=== PATIENT | male | born 1975 | race Hispanic/Latino ===

== ENCOUNTER 2017-09-06 15:57 | Emergency (ER) | payer OTHER ==
[~2017-09-06] VITALS: Ht 170.2 cm; Wt 93.9 kg
[~2017-09-06 15:57] MED LIST: CYCLOBENZAPRINE5 M2 PO; DIAZEPAM5 M1 PO; GABAPENTIN300 M2 PO; IBUPROFEN800 MG PO; KEFLEX500 MG PO; LISINOPRIL-HCT1 EAC1 PO; LISINOPRIL-HYDR1 TA1 PO; LYRICA50 MG PO; MULTI-DAY VITA1 EACH PO; NAPROSYN 500 M500 MG PO; NEXIUM 40MG40 MG PO; NUCYNTA50 M1 PO; OXYCODONE HCL15 MG PO; OXYCODONE HYDRO15 MG PO; PRAVACHOL20 M2 PO; PROAIR HFA8.5 GM INH; VICODIN 5-3001 EACH PO
--- NOTE | 2017-09-06 18:05 | ED UPPER/LOWER EXTREMITY COMPL ---
History of Present Illness General Chief Complaint: Laceration Procedure Stated Complaint: "LT HAND CUT BY LIGHT BULB GLASS" Source: patient Exam Limitations: no limitations Vital Signs & Intake/Output Vital Signs & Intake/Output Vital Signs Date Time Temp Pulse Resp B/P B/P Pulse O2 O2 Flow FiO2 Mean Ox Delivery Rate 09/06 1858 97.0 66 14 128/72 100 Nasal 2.0L Cannula 09/06 1652 98.7 93 20 116/73 95 Room Air Allergies Coded Allergies: No Known Allergies (09/06/17) Reconcile Medications Esomeprazole (Nexium) 40 MG CAPSULE.DR 1 CAP PO DAILY GI (Reported) Gabapentin 300 MG CAPSULE 1 CAP PO TID NERVE PAIN (Reported) Lisinopril/Hydrochlorothiazide (Lisinopril-Hctz 20-25 MG Tab) 1 EACH TABLET 1 TAB PO DAILY BP (Reported) Oxycodone HCl 10 MG TABLET 1 TAB PO Q8-12H PRN PAIN (Reported) Pravastatin Sodium (Pravachol) 20 MG TABLET 1 TAB PO DAILY CHOLESTEROL ( Reported) Triage Note: TRIAGE: PT TO ER WITH DAUGHTERS C/C LAC TO L HAND. STATES HE INJURED APPROX 1 HR AGO. HE WAS STANDING ON A LADDER WHEN HE FELL BACKWARDS AND HE HIT HIS HEAD INTO GLASS COVER TO LIGHT ON CEILING AND THEN HAND HIT INTO IT WELL. DENIES LOC OR HEAD PAIN. HAS APPROX 1 INCH LAC TO BACK SIDE OF HAND. STATES PINKY AND RING FINGER FEELS NUMB BUT IS ABLE TO MOVE BOTH. NEW DRESSING APPLIED AT TRIAGE, BLEEDING CONTROLLED. Triage Nurses Notes Reviewed? yes Onset: Abrupt Duration: constant Timing: single episode today Severity: moderate Severity Numbers: 5 HPI: Patient is a 41-year-old male who presents emergency and that while trying to change a light fixture the light fixture fell and struck the dorsal aspect of his hands resulting in a laceration with bleeding was controlled prior to arrival. Patient states tetanus is unknown patient is right arm dominant he complains of 3/10 and localized pain. (Slava Pacheco) Past History Travel History Traveled to [place] past 21 day No Medical History Any Pertinent Medical History? 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 No (Slava Pacheco) Review of Systems Review of Systems Constitutional: Reports: no symptoms. EENTM: Reports: no symptoms. Respiratory: Reports: no symptoms. Cardiovascular: Reports: no symptoms. Gastrointestinal/Abdominal: Reports: no symptoms. Genitourinary: Reports: no symptoms. Musculoskeletal: Reports: see HPI. Skin: Reports: see HPI. Neurological/Psychological: Reports: no symptoms. Hematologic/Endocrine: Reports: see HPI. Immunological: Reports: no symptoms. All Other Systems: Reviewed and Negative (Slava Pacheco) Physical Exam Physical Exam General Appearance: no apparent distress, alert, comfortable Head: atraumatic Eyes: Bilateral: normal appearance. Ears, Nose, Throat: hearing grossly normal Cardiovascular/Respiratory: no respiratory distress Peripheral Pulses: 2+ radial (L) Neurologic/Tendon: normal sensation, normal motor functions, normal tendon functions, responds to pain, no evidence tendon injury, no pulse deficit Skin: normal color Diagram Hands Back 1) Noted 1.5 cm subcutaneous linear laceration with full active range of motion and resisted range of motion with digit flexion and extension no exposed bone no exposed tendon no bleeding (Slava Pacheco) Progress Differential Diagnosis: arterial insufficiency, compartment syndrome, contusion, dislocation, DVT, fracture, gout, septic arthritis, sprain, tendon injury Plan of Care: Orders Procedure Date/time Status EKG 09/07 1999 Active Telemetry/Vice Principal 09/06 1942 Active ETHANOL 09/06 1942 Complete TROPONIN LEVEL 09/06 1922 Complete MAGNESIUM 09/06 1922 Complete COMPREHENSIVE METABOLIC PANEL 09/06 1922 Complete CBC WITHOUT DIFFERENTIAL 09/06 1922 Complete EKG 09/06 1853 Active Laboratory Tests 09/06/171954: Anion Gap 13, Estimated GFR > 60, BUN/Creatinine Ratio 15.0, Glucose 91, Calcium 9.4, Magnesium 2.0, Total Bilirubin 0.8, AST 35, ALT 69, Alkaline Phosphatase 74 , Troponin I < 0.01, Total Protein 7.2, Albumin 4.4, Globulin 2.8, Albumin/ Globulin Ratio 1.6, CBC w Diff NO MAN DIFF REQ, RBC 5.36, MCV 85.4, MCH 29.5, MCHC 34.5, RDW 13.6, MPV 7.3 L, Gran % 63.2, Lymphocytes % 26.6, Monocytes % 8.7, Eosinophils % 1.1, Basophils % 0.4, Absolute Granulocytes 3.8, Absolute Lymphocytes 1.6, Absolute Monocytes 0.5, Absolute Eosinophils 0.1, Absolute Basophils 0, Serum Alcohol < 10.0 No concerns of fracture or tendon deficit on exam Please note that after applying the sutures patient felt lightheaded and dizzy and had a vasovagal response and syncopal Patient was placed with laboratory monitor nasal cannula oxygen EKG was ordered After approximately 1 minute patient Patient became completely oriented after approximately 2-3 minutes. Patient did drink one tana prior to arrival currently is taking narcotics for pain. Patient has EKG abnormalities which I discussed the patient and EKG with Dr. Remy who advised to recheck see second EKG After patient totally recover from his vasovagal syncope the laceration repair was continued and which using sterile technique of Betadine I applied approximated 3 mL of 1% lidocaine then copious amounts of sterile water irrigation then was placed in which and total number for 5-0 sutures were applied margins were revised patient tolerated well Bacitracin and bandage was applied Blood work was obtained unremarkable findings discussed patient with Dr. Remy after a second EKG was unremarkable normal sinus rhythm he advised patient to follow-up in office. Discussed disposition plan with patient who agrees Due to patient's history of present illness and syncopal episode his EKG abnormalities were likely due to the syncopal episode Initial ED EKG: NOTED 64 BPM SINUS RHYTHM WITH RIGHT BUNDLE BRANCH BLOCK AND lvh AND t-WAVE ELEVATION Repeat EKG: changed (NORMAL SINUS RHYTHM) (Slava Pacheco) Departure Departure Disposition: HOME OR SELF CARE Condition: Stable Clinical Impression Primary Impression: Laceration of hand, left Secondary Impressions: Vasovagal episode Referrals: Gaviota Wilkins APRN (PCP/Family) Sandrita ROBLES,Maurice Read Additional Instructions: As discussed apply bacitracin to the region once a day for the following 4 days and leave area open to improve healing. Return to emergency room in 7 days for suture removal. Begin [id number] ibuprofen or Tylenol for pain. If you note signs infection redness, pain, swelling, discharge return to emergency room. Keep area dry and clean as YOU can. Tomorrow please follow-up and call regional extension service specialist Dr. Remy Departure Forms: Customer Survey General Discharge Information (John RICHARDS,Slava) PA/BIRD TENDER Co-Sign Statement Statement: ED Attending supervision documentation- [] I saw and evaluated the patient. I have also reviewed all the pertinent lab results and diagnostic results. I agree with the findings and the plan of care as documented in the PA's/BIRD TENDER's documentation. [X] I have reviewed the ED Record and agree with the PA's/BIRD TENDER's documentation. [] Additions or exceptions (if any) to the PAs/BIRD TENDER's note and plan are summarized below: [] (Arcelia ROBLES,Azar Montaño)
[2017-09-06] MEDS ORDERED: OXYCODONE HCL10 M2 PO (19:48)
[2017-09-06] MEDS ORDERED: NEXIUM40 M1 PO (19:48)
[2017-09-06 20:14] LABS: ABSOLUTE BASOPHIL COUNT 0 /CUMM (0.0-0.2); ABSOLUTE EOSINOPHIL COUNT 0.1 /CUMM (0.0-0.7); ABSOLUTE GRANULOCYTE CT 3.8 /CUMM (1.4-6.5); ABSOLUTE LYMPH COUNT 1.6 /CUMM (1.2-3.4); ABSOLUTE MONOCYTE COUNT 0.5 /CUMM (0.10-0.60); BASOPHIL % 0.4 % (0.0-2.0); EOSINOPHIL % 1.1 % (0-5); GRANULOCYTE % 63.2 % (42.2-75.2); HEMATOCRIT 45.8 % (42-52); MEAN CORPUSCULAR HGB 29.5 PG (27.0-31.0); MEAN CORPUSCULAR HGB CONC 34.5 G/DL (33.0-37.0); MEAN CORPUSCULAR VOLUME 85.4 FL (80.0-94.0); MEAN PLATELET VOLUME 7.3 FL (7.4-10.4); PLATELET COUNT 240 /CUMM (130-400); RBC DISTRIBUTION WIDTH 13.6 % (11.5-14.5); RED BLOOD CELL CT 5.36 /CUMM (4.70-6.10); WHITE BLOOD CELL COUNT 6.1 /CUMM (4.8-10.8)
[2017-09-06 21:04] VITALS: BP 123/78
== END 2017-09-06 21:10 ==
LOC: ERH 15:57
PROVIDERS: Physician Assistant
DX: S61.412A Laceration without foreign body of left hand, initial encounter (principal); R55 Syncope and collapse; W25.XXXA Contact with sharp glass, initial encounter; Y92.9 Unspecified place or not applicable; Y93.89 Activity, other specified
CPT/HCPCS: 93005; 93010; 96360; G0480; J2001